=== PATIENT | male | born 1960 | race African-American/Black ===

== ENCOUNTER 2016-04-09 09:51 | Inpatient (IN) | payer BC ==
--- NOTE | ~2016-04-09 | HP ---
History And Physical [address] [place]. [address] NAME: SHAI PALOMINO : 58 STATUS : ADM IN [facility]#: [id number] AGE: 55 ADM/REG DATE : 04/09/16 MR#: [id number] REPORT SERV DATE: 04/10/16 DICTATED BY: ADRIAN RUIZ DATE: 04/09/16 REPORT STATUS : Draft TRANSCRIBED BY: CAMERON DATE: 04/09/16 DATE OF ADMISSION: 04/09/2016 CHIEF COMPLAINT: Joint and body aches x2 days. HISTORY OF PRESENT ILLNESS: A 55-year-old black male with past medical history of diabetes type 2, hypertension, obstructive sleep apnea with CPAP, presenting with joint and body aches x2 days. The patient states that he had sudden onset of joint and body aches. This was associated also with cough as well as with chills and fever. The patient states he does not bring up some sputum with his cough which is hard to bring up, but had consisted of yellow in character. He admits to having recent antibiotic use which was Zithromax. In addition, the patient denies any sick contact. He does admit to having short of breath, sore throat, and rhinorrhea. He also admits to having myalgias and arthritis. He denies any nausea, vomiting, or ear pain. The patient also states he had a Pneumovax vaccine; however, he declined to get the flu shot. PAST MEDICAL HISTORY: As above. MEDICATIONS: 1. The patient takes Zithromax Z-Rancho started on 04/08/2016. 2. Dexilant 60 mg p.o. daily. 3. Flonase one spray each nostril b.i.d. 4. Glyburide/metformin 2.5/500 mg p.o. b.i.d. 5. Diovan/hydrochlorothiazide 320/12.5 mg p.o. daily. ALLERGIES: NO KNOWN DRUG ALLERGIES. FAMILY HISTORY: The patient states there are no significant medical history. REVIEW OF SYSTEMS: Ten-point review of systems conducted, which were negative except for above complaints. PHYSICAL EXAMINATION: VITAL SIGNS: Temp of 100.8, pulse of 116, respiratory rate 22, BP 141/87, and O2 saturation 94% on 2 L. HEAD AND NECK: Normocephalic and atraumatic. CARDIOVASCULAR: S1, S2. Regular rate and rhythm. LUNGS: Good air entry. Decreased breath sounds at the bases. No wheezes, rales, or rhonchi. Trachea midline. No accessory muscle. ABDOMEN: Soft, nontender, and nondistended. EXTREMITIES: No clubbing, cyanosis, or edema. NEUROLOGICAL: The patient is awake, alert, and oriented x3. Cranial nerves 2 through 12 grossly intact. LABORATORY DATA: Sodium 139, potassium 4.0, chloride 102, bicarb 27, BUN 20, creatinine 1.52, glucose 83, calcium 8.5, BNP 6.9, total protein 7.8, albumin 3.2, globulin 4.6, total History And Physical [address] [address] NAME: SHAI PALOMINO : 58 STATUS : ADM IN [facility]#: [id number] AGE: 55 ADM/REG DATE : 04/09/16 MR#: [id number] REPORT SERV DATE: 04/10/16 DICTATED BY: ADRIAN RUIZ DATE: 04/09/16 REPORT STATUS : Draft TRANSCRIBED BY: CAMERON DATE: 04/09/16 bilirubin 0.6, alkaline phosphatase 61, ALT 26, and AST 23. WBC 4.3, hemoglobin 8.9, hematocrit 30.8, platelets 295, PT 14.5, and INR 1.1. ABG on room air shows pH of 7.44, pCO2 of 30, PaO2 of 61, bicarb 25.1, and O2 saturation 91.3%. Procalcitonin 0.11. Chest x-ray: No acute cardiopulmonary disease. Mild central venous engorgement without kyra edema. Lactic acid is 0.8. BNP is 6.9. ASSESSMENT/PLAN: 1. Joint pain and body aches x2 days secondary to influenza B. At this time we will continue supportive care with oxygen as well as Mucomyst for cough and IV fluids for dehydration. 2. Acute hypoxic respiratory failure secondary to influenza. We will treat the patient with Mucomyst breathing treatments and oxygen. 3. Diabetes type 2. Hold metformin and glyburide. Start the patient on Levemir 10 units with a sliding scale level 1. We will also check HbA1c and lipid profile. 4. Hypertension. Continue valsartan and hydrochlorothiazide, and have hydralazine p.r.n. for systolic greater than 160. 5. Obstructive sleep apnea. I advised the patient to continue CPAP. The patient's will bring CPAP from home. 6. Deep venous thrombosis. Continue the patient with heparin 5000 units subcu b.i.d. AMOR/CAMERON Adrian Ruiz MD / [id number] CC: Diann Toure M.D.
--- NOTE | ~2016-04-09 | DS ---
Discharge Summary [facility] [address] [place]. [address] NAME: SHAI PALOMINO : 58 STATUS : ADM IN [facility]#: [id number] AGE: 55 ADM/REG DATE : 04/09/16 MR#: [id number] REPORT SERV DATE: 04/13/16 DICTATED BY: REBECA FRANCIS DATE: 04/13/16 REPORT STATUS : Draft TRANSCRIBED BY: MODSuni DATE: 04/13/16 ADMISSION DATE: 04/09/2016 DISCHARGE DATE: FINAL DIAGNOSES: 1. Influenza B. 2. Obstructive sleep apnea. 3. Diabetes. 4. Hypertension. DIAGNOSTIC EXAM: Chest x-ray showing no acute cardiopulmonary disease, mild central venous engorgement without kyra edema. Repeat chest x-ray showing mild vascular congestion. Chest is improving compared to previous study. HOSPITAL COURSE: Please refer to the H and P done by Dr. Beach dated April 09, 2016. Briefly, this is a 55-year-old male, who comes in for joint and body aches. The patient has a history of diabetes, hypertension, DEBORAH, has been having two-day history of joint and body aches. The patient said that this happened suddenly and associated with cough,I chills, and fever. The patient had Zithromax, but did not help. Then, finally went to the emergency room where the patient was found to have influenza B. The patient was then admitted and started on Tamiflu, and the patient slowly improved. On the day of discharge, the patient was saturating 96% on room air and denies any more severe aches and pains, but said he is still not back to his normal self. The patient's vitals remained stable and with his improvement, is going to be discharged with the above diagnosis. Of note, we also found that the patient has chronic anemia, microcytic type. We checked the iron and if in fact the patient has iron deficiency anemia, he probably would need further workup for this, but I would defer this to his PCP. The patient will now be discharged with the following medications: Fluticasone one spray twice a day as needed, Tamiflu 75 mg twice a day for three more doses, Dexilant 60 mg a day, Diovan/hydrochlorothiazide 320/12.5 one tab once a day, Glucovance 2.5/500 two tabs twice a day. The patient will follow up with Dr. Carlita Giles is in a week's time. He is requesting to have a note for his work and I am going to say that he can go back next week on Monday, but he would need to have further iron deficiency workup as an outpatient basis with his PCP, Dr. Carlita Giles. This has been explained to the patient and he agreed and understood the plan. EVAN/CAMERON Rebeca Francis M.D. / [id number] CC: Rebeca Francis M.D. Discharge Summary [address] [address] NAME: SHAI PALOMINO : 58 STATUS : ADM IN [facility]#: [id number] AGE: 55 ADM/REG DATE : 04/09/16 MR#: [id number] REPORT SERV DATE: 04/13/16 DICTATED BY: REBECA FRANCIS DATE: 04/13/16 REPORT STATUS : Draft TRANSCRIBED BY: CAMERON DATE: 04/13/16 Carlita Giles M.D.
[2016-04-09 09:40] LABS: BASOPHILS 0.7 %; BASOPHILS ABSOLUTE 0.03 10/3/uL (0.0-0.16); EOSINOPHILS 0.9 %; EOSINOPHILS ABSOLUTE 0.04 10/3/uL (0.0-0.53); ER CBC TAT 0 Hrs 16 Mins; HEMOGLOBIN 8.9 g/dL (13.6-17.8); LYMPHOCYTES 43.3 %; LYMPHOCYTES ABSOLUTE 1.86 10/3/uL (0.67-4.30); MEAN PLATELET VOLUME 8.9 fL (9.2-13.0); MONOCYTES 12.3 %; MONOCYTES ABSOLUTE 0.53 10/3/uL (0.21-1.20); NEUTROPHILS 42.8 %; NEUTROPHILS ABSOLUTE 1.84 10/3/uL (2.02-8.40); RED CELL COUNT 4.28 10/6/uL (4.7-6.1); WHITE BLOOD CELLS 4.3 10/3/uL (4.5-10.5)
[2016-04-09 09:41] LABS: HEMATOCRIT 30.8 % (40.0-51.0); MANUAL DIFF NO %; MEAN CORPUS HGB CONC 28.9 g/dL (32.0-36.0); MEAN CORPUSCULAR HEMOGLOB 20.8 pg (26.0-34.0); PLATELET COUNT 295 10/3/uL (150-400)
[2016-04-09 09:46] LABS: A/G RATIO 0.7 (0.7-1.9); ALBUMIN 3.2 G/DL (3.5-5.0); ALKALINE PHOSPHATASE 69 U/L (45-117); BUN (BLOOD UREA NITROGEN) 20 MG/DL (6-23); CALCIUM, SERUM 8.8 MG/DL (8.5-10.4); CHLORIDE, SERUM 102 MMOL/L (96-112); CO2 (CARBON DIOXIDE) 27 MMOL/L (24-34); CREATININE 1.52 MG/DL (0.70-1.30); GFR AFRICAN AMERICAN 59 ML/MIN (>=60); GFR NON AFRICAN AMERICAN 50 ML/MIN (>=60); GLOBULIN 4.6 G/DL (2.5-4.1); GLUCOSE, SERUM 83 MG/DL (60-99); LACTATE 0.8 MMOL/L (0.3-2.4); SGOT(AST) 23 U/L (5-40); SGPT(ALT) 26 U/L (5-65); SODIUM, SERUM 139 MMOL/L (135-148); TOTAL BILIRUBIN 0.6 MG/DL (0-1.2); TOTAL PROTEIN 7.8 G/DL (6.0-8.5)
[~2016-04-09 09:51] MED LIST: COMBIVENT INH; DIOVAN320 MG PO; GLUCPH PO; SYMBICORT 160/41 INH INH
[2016-04-09 09:53] LABS: HCO3 (ACTUAL BICARBONATE) 25.1 MEQ/L (23-27); INSTRUMENT SERIAL # 8087; PCO2 (CO2 TENSION) 38 MMHG (35-45); PO2 (O2 TENSION) 61 MMHG (79-93); pH 7.44 (7.37-7.43)
[2016-04-09 09:54] LABS: ALLENS TEST Pos; HEMOBLOGIN CONTENT 9.7 G/DL (14-18); O2 CONTENT 12.1 VOL% (18-24); SAMPLE Arterial
[2016-04-09 09:55] LABS: INTERNATIONAL NORMAL RATI 1.1 UNITS (-); PARTIAL THROMBO TIME 35.7 SEC (22.5-37.2); PROTIME (NOT ORD) 14.5 SEC (12.0-14.5)
[2016-04-09 10:06] LABS: ANISOCYTOSIS 1+ (5-10/OIF) (0-5/OIF); PLATELET ESTIMATE ADQ (ADEQUATE)
[2016-04-09 10:07] LABS: HYPOCHROMIA 3+ (>30/OIF) (0-2/OIF)
[2016-04-09 10:13] LABS: PROCALCITONIN 0.11 ng/mL (<0.5)
[2016-04-09 10:15] LABS: INFLUENZA A SCREEN NEGATIVE (NEGATIVE); INFLUENZA B SCREEN POSITIVE (NEGATIVE)
[2016-04-09] MEDS ORDERED: Z-PAK PO (10:55)
[2016-04-09] MEDS ORDERED: DIOVAN HC2 PO (11:00)
[2016-04-09] MEDS ORDERED: FLONASE NAS (11:02)
[2016-04-09] MEDS ORDERED: KAPIDEX60 MG PO (11:02)
[2016-04-09] MEDS ORDERED: GLUCOV2.5 PO (11:02)
[2016-04-09 12:24] LABS: ASCORBIC ACID (UR NOT ORDER) NEG (NEG); BILIRUBIN, URINE NEGATIVE (NEG); KETONE, URINE TRACE MG/DL (NEG); LEUKOCYTE ESTERASE(NOT OR NEG (NEG); NITRITE (URINE) NEG (NEG); WBC (NOT ORDERED) (RFLEX) 1 (0-5)
[2016-04-09 12:27] LABS: ER URINALYSIS TAT 0 Hrs 36 Mins
[2016-04-10 05:41] LABS: HEMATOCRIT 29.3 % (40.0-51.0); HEMOGLOBIN 8.5 g/dL (13.6-17.8); MEAN CORPUSCULAR HEMOGLOB 21.3 pg (26.0-34.0); MEAN CORPUSCULAR VOLUME 73.4 fL (80-100); PLATELET COUNT 274 10/3/uL (150-400); RBC DISTRIBUTION WIDTH 18.2 % (12.0-16.0); RED CELL COUNT 3.99 10/6/uL (4.7-6.1); WHITE BLOOD CELLS 2.8 10/3/uL (4.5-10.5)
[2016-04-10 05:47] LABS: MANUAL DIFF YES %
[2016-04-10 05:57] LABS: A/G RATIO 0.7 (0.7-1.9); ALBUMIN 2.9 G/DL (3.5-5.0); ALKALINE PHOSPHATASE 63 U/L (45-117); BUN (BLOOD UREA NITROGEN) 19 MG/DL (6-23); CALCIUM, SERUM 8.5 MG/DL (8.5-10.4); CHLORIDE, SERUM 100 MMOL/L (96-112); CHOL/HDL RATIO(NOT ORDER) 3.1 (0-5); CHOLESTEROL 119 MG/DL (< 200); CO2 (CARBON DIOXIDE) 25 MMOL/L (24-34); GFR AFRICAN AMERICAN 78 ML/MIN (>=60); GFR NON AFRICAN AMERICAN 67 ML/MIN (>=60); GLOBULIN 4.3 G/DL (2.5-4.1); GLUCOSE, SERUM 91 MG/DL (60-99); HDL CHOLESTEROL 39 MG/DL (> 39); LDL CHOLESTEROL 68 MG/DL (< 130); NON-HDL CHOLESTEROL 80 MG/DL (< 160); PHOSPHORUS, SERUM 2.4 MG/DL (2.5-4.5); SGOT(AST) 24 U/L (5-40); SGPT(ALT) 24 U/L (5-65); SODIUM, SERUM 135 MMOL/L (135-148); TOTAL BILIRUBIN 0.6 MG/DL (0-1.2); TOTAL PROTEIN 7.2 G/DL (6.0-8.5); TRIGLYCERIDE 63 MG/DL (< 150)
[2016-04-10 06:07] LABS: ANISOCYTOSIS 1+ (5-10/OIF) (0-5/OIF); BAND NEUTROPHILS 6 %; EOSINOPHILS 1 %; EOSINOPHILS ABSOLUTE (CALC) 0.03 10/3/uL (0.0-0.53); LYMPHOCYTES 19 %; LYMPHOCYTES ABSOLUTE (CALC) 0.53 10/3/uL (0.67-4.30); MONOCYTES 20 %; MONOCYTES ABSOLUTE (CALC) 0.56 10/3/uL (0.21-1.20); NEUTROPHILS ABSOLUTE (CALC) 1.68 10/3/uL (2.02-8.40); PLATELET ESTIMATE ADQ (ADEQUATE); SEGMENTED NEUTROPHIL (0) 54 %; TOTAL NUCLEATED CELLS 100
[2016-04-11 07:01] LABS: BASOPHILS 0 %; EOSINOPHILS 0 %; HEMATOCRIT 29.7 % (40.0-51.0); HEMOGLOBIN 8.7 g/dL (13.6-17.8); IMMATURE GRANULOCYTES 0.5 %; IMMATURE GRANULOCYTES ABSOLUTE 0.01 10/3/uL (0.0-0.11); LYMPHOCYTES 17.7 %; LYMPHOCYTES ABSOLUTE 0.36 10/3/uL (0.67-4.30); MEAN CORPUS HGB CONC 29.3 g/dL (32.0-36.0); MEAN CORPUSCULAR HEMOGLOB 21.4 pg (26.0-34.0); MEAN PLATELET VOLUME 8.6 fL (9.2-13.0); MONOCYTES 12.3 %; MONOCYTES ABSOLUTE 0.25 10/3/uL (0.21-1.20); NEUTROPHILS 69.5 %; NEUTROPHILS ABSOLUTE 1.41 10/3/uL (2.02-8.40); PLATELET COUNT 269 10/3/uL (150-400); RED CELL COUNT 4.07 10/6/uL (4.7-6.1)
[2016-04-11 07:22] LABS: MANUAL DIFF NO %
[2016-04-11 07:29] LABS: BUN (BLOOD UREA NITROGEN) 21 MG/DL (6-23); CALCIUM, SERUM 8.8 MG/DL (8.5-10.4); CHLORIDE, SERUM 98 MMOL/L (96-112); CO2 (CARBON DIOXIDE) 24 MMOL/L (24-34); CREATININE 1.08 MG/DL (0.70-1.30); GFR AFRICAN AMERICAN 88 ML/MIN (>=60); GFR NON AFRICAN AMERICAN 76 ML/MIN (>=60); GLUCOSE, SERUM 195 MG/DL (60-99); POTASSIUM, SERUM 4.4 MMOL/L (3.5-5.3); SODIUM, SERUM 132 MMOL/L (135-148)
[2016-04-11 08:02] LABS: ANISOCYTOSIS 1+ (5-10/OIF) (0-5/OIF); PLATELET ESTIMATE ADQ (ADEQUATE)
[2016-04-12 06:40] LABS: BASOPHILS 0.5 %; BASOPHILS ABSOLUTE 0.01 10/3/uL (0.0-0.16); EOSINOPHILS 0 %; HEMATOCRIT 31.1 % (40.0-51.0); HEMOGLOBIN 9.1 g/dL (13.6-17.8); LYMPHOCYTES 16.5 %; LYMPHOCYTES ABSOLUTE 0.33 10/3/uL (0.67-4.30); MEAN CORPUS HGB CONC 29.3 g/dL (32.0-36.0); MEAN CORPUSCULAR HEMOGLOB 21.2 pg (26.0-34.0); MEAN CORPUSCULAR VOLUME 72.5 fL (80-100); MEAN PLATELET VOLUME 8.9 fL (9.2-13.0); MONOCYTES 16.5 %; MONOCYTES ABSOLUTE 0.33 10/3/uL (0.21-1.20); NEUTROPHILS 66.5 %; NEUTROPHILS ABSOLUTE 1.33 10/3/uL (2.02-8.40); PLATELET COUNT 319 10/3/uL (150-400); RBC DISTRIBUTION WIDTH 17.9 % (12.0-16.0); RED CELL COUNT 4.29 10/6/uL (4.7-6.1)
[2016-04-12 06:41] LABS: MANUAL DIFF NO %
[2016-04-12 06:54] LABS: CALCIUM, SERUM 8.8 MG/DL (8.5-10.4); CHLORIDE, SERUM 100 MMOL/L (96-112); CO2 (CARBON DIOXIDE) 26 MMOL/L (24-34); CREATININE 1.16 MG/DL (0.70-1.30); GFR AFRICAN AMERICAN 81 ML/MIN (>=60); GFR NON AFRICAN AMERICAN 70 ML/MIN (>=60); GLUCOSE, SERUM 226 MG/DL (60-99); POTASSIUM, SERUM 4.4 MMOL/L (3.5-5.3); SODIUM, SERUM 135 MMOL/L (135-148)
[2016-04-12 06:55] LABS: BUN (BLOOD UREA NITROGEN) 25 MG/DL (6-23)
[2016-04-12 07:08] LABS: PLATELET ESTIMATE ADQ (ADEQUATE)
[2016-04-12 07:09] LABS: HYPOCHROMIA 1+ (3-10/OIF) (0-2/OIF); POLYCHROMASIA 1+ (2-5/OIF) (0-1/OIF)
[2016-04-12 13:04] LABS: FERRITIN 31 NG/ML (26-388); IRON BINDING CAPACITY 336 MCG/DL (250-450); IRON, SERUM 20 MCG/DL (35-150)
[2016-04-13] MEDS ORDERED: TAMIFLU PO (08:49)
== END 2016-04-13 11:21 | disposition home or self-care (01) | DRG 193 ==
LOC: ER 09:51 → 5SO 11:10
PROVIDERS: Hospitalist; Internal Medicine; Physician Assistant
DX: J10.1 Influenza due to other identified influenza virus with other respiratory manifestations (principal); J96.01 Acute respiratory failure with hypoxia; E11.9 Type 2 diabetes mellitus without complications; I10 Essential (primary) hypertension; G47.33 Obstructive sleep apnea (adult) (pediatric); Z79.899 Other long term (current) drug therapy; Z79.84 Long term (current) use of oral hypoglycemic drugs
CPT/HCPCS: 36600; 71010; 80048; 80053; 80061; 81001; 82607; 82728; 82746; 82805; 82962; 83036; 83540; 83550; 83605; 83735; 83880; 84100; 84145; 85025; 85610; 85730; 87040; 87804; 93005; 94640; 96365; 96366; 96375; 99285; A9270-GY; J0456; J1956; J2920